=== PATIENT | female | born 1945 | race Caucasian/White ===

== ENCOUNTER 2017-06-26 15:29 | Observation (INO) | payer MEDICARE ==
[2017-06-26] MEDS ORDERED: Cyclobenzaprine 10 MG TAB PO PRN (16:35)
[2017-06-26] MEDS ORDERED: Ondansetron ODT 4 MG TAB PO PRN (17:02)
[2017-06-26] MEDS ORDERED: HYDROcodone/Acetaminophen 10/325 mg Tablet PO PRN (17:02)
[2017-06-26] MEDS ORDERED: HYDROcodone/Acetaminophen 5/325 mg Tablet PO PRN (17:02)
[2017-06-26] MEDS ORDERED: Acetaminophen 325 MG TAB PO PRN (17:02)
[2017-06-26] MEDS ORDERED: Enoxaparin Sodium 40 MG/0.4 ML SYRINGE SC SCH (17:02)
--- NOTE | 2017-06-26 17:17 | HP ---
DATE OF OBSERVATION: 06/26/2017 CHIEF COMPLAINT: Urinary tract infection. HISTORY OF PRESENT ILLNESS: Ms. Cueto is a 72-year-old white female, looks younger than her stated age. She was transferred from [facility] for admission for UTI. She had 1 day of subjective fe norberto, urinary urgency and frequency, but no dysuria that she never has. She went to the emergency de partment at [facility] where she was found to have white count of 21.9, lactic acid was a little elevated at 2.6, the rest of her labs remained unremarkable and for some reason she was transferred here for further workup and evaluation. She has been admitted several times in the past for urinary tract infection. She does not have any known anatomic abnormalities, sees an urologist in [place], she thinks Dr. Jack. No chest pain or shortness of breath, no nausea or vomiting, no diaphoresis, no chills or rigors. PAST MEDICAL HISTORY: 1. Hypertension. 2. Past pneumonia. 3. Coronary artery disease, status post PCI and balloons in 1996. 4. History of recurrent urinary tract infections and pyelonephritis. 5. Restless leg syndrome. 6. GERD. PAST SURGICAL HISTORY: Include, 1. PCI with 2 balloon treatment in 1996. 2. Back surgery in [place] about 10 years ago. HOME MEDICATIONS: 1. Norvasc 5 mg daily. 2. Aspirin 81 mg daily. 3. Coreg 12.5 mg p.o. b.i.d. 4. Myrbetriq 50 mg p.o. q.a.m. 5. Omeprazole 20 mg p.o. q.a.m. 6. Oxybutynin 5 mg p.o. t.i.d. 7. Requip 1 mg p.o. q.a.m. and 3 mg p.o. at bedtime. 8. Gabapentin 300 mg p.o. q.a.m. and 600 mg p.o. q.3 p.m. and 800 mg p.o. at bedtime. 9. Lasix 20 mg p.o. daily p.r.n. swelling. 10. Advair Diskus 250/50 one puff q.4 hours p.r.n. 11. Estradiol 1 mg p.o. q.a.m. 12. Flexeril 10 mg p.o. t.i.d. p.r.n. muscle spasm. ALLERGIES: RASTA INHIBITOR causes angioedema, specifically RAMIPRIL and IBUPROFEN causes GI irritatio n. FAMILY HISTORY: Negative for clotting or bleeding disorder, no immune dysfunction, no premature cor onary artery disease. SOCIAL HISTORY: She is . She does not drink, has never done drugs and does not smoke. REVIEW OF SYSTEMS: A 10-point review of systems was performed and negative for all systems except a s stated per HPI. PHYSICAL EXAMINATION: VITAL SIGNS: Temperature 98.1, pulse 93, blood pressure 131/68, respiratory 18, satting 95% on room air. GENERAL: She is awake. She is alert. She is oriented x3. She appears to be in zero distress. HEENT: Normocephalic, atraumatic. Pupils equal, round, reactive to light bilaterally. Mucous memb ranes are moist. She had no visible lesions. No thrush. NECK: Supple. She has no lymphadenopathy, no JVD. She has normal carotids without bruits and norm al upstroke. LUNGS: Clear to auscultation bilaterally. She has no wheezes, no rales, no rhonchi, and no prolong ed expiratory phase and good air movement and symmetric bilateral chest excursion. CARDIOVASCULAR: She has normal cardiac. She is regular. She has normal S1 and S2, no S3 or S4. N o murmurs. ABDOMEN: Soft, nontender, nondistended. She has no suprapubic tenderness. There is no rebound, ri gidity or guarding. She has normoactive bowel sounds present all 4 quadrants. EXTREMITIES: No cyanosis, no clubbing. She has trace pedal edema. She has 2+ peripheral dorsalis pedis and posterior tibial pulses. NEUROLOGIC: Cranial nerves II-XII are grossly intact. She has normal strength, normal speech patte rn, no focal neurologic deficits. MUSCULOSKELETAL: Normal to inspection. She has no inflamed joints, no palpable joint effusions and normal range of motion. SKIN: Warm and well perfused. She has no rashes and no discoloration or lesions. LABORATORY DATA: CMP is completely normal. Creatinine 0.85, potassium 3.8. Normal liver functions . Her white count was 21.9, she did have a slight granulocytosis but no documented bands. Hemoglob in 10.5, hematocrit 34.6, platelets 383,000. Lactic acid slightly elevated at 2.6. Her urinalysis shows 21-50 white blood cells with 7-10 squamo us epithelial cells. She has 4+ bacteria and positive nitrite. ASSESSMENT AND PLAN: 1. Urinary tract infection. She reportedly had a fever at home of 101.2 earlier, with that conside red and apparently initially tachycardic, she does meet criteria for sepsis, lactic acid 2.6 and she meets criteria for severe sepsis. We will place in observation. We will start her on IV antibioti cs, she got Rocephin at the outside hospital. Start her on IV fluids. Recheck labs in the morning. She actually looks quite good given her inclusive severe sepsis criteria. I suspect she may be ab le to go home tomorrow. We will reevaluate then. 2. Hypertension. Continue home medications. 3. Coronary artery disease. Continue home medications. 4. History of restless legs syndrome. Continue her Requip. 6. Gastroesophageal reflux disease. Continue omeprazole. I will recollect her urinalysis, given that she has 7-10 squamous epithelial cells, increase the ris k of contamination. Review of her prior urinalysis and cultures did reveal multiple episodes of contamination. We will evaluate once we have better data. Place the patient in observation overnight.
[2017-06-26 17:20] VITALS: BMI 30.5
[2017-06-26] MEDS: Sodium Chloride 0.9% 1,000 ML IV SCH (18:00)
[2017-06-26] MEDS: Mometasone/Formoterol 120 PUFF INHALER INH SCH (18:35)
[2017-06-26] MEDS: Carvedilol 6.25 MG TAB PO SCH (20:54)
[2017-06-26] MEDS: Oxybutynin 5 MG TAB PO SCH (20:57)
[2017-06-26] MEDS ORDERED: Gabapentin 300 MG CAP PO SCH (21:00)
[2017-06-26] MEDS ORDERED: Amlodipine 5 MG TAB PO SCH (21:00)
[2017-06-26] MEDS ORDERED: Non-Formulary Item 1 EACH (Oxybutynin Chloride [Oxybutynin Chloride] 5 MG) PO SCH (21:00)
[2017-06-26] MEDS ORDERED: rOPINIRole HCl 1 MG TAB PO SCH (21:00)
[2017-06-26 23:24] LABS: Bilirubin Negative (Negative); Blood, Urine Negative (Negative); Glucose, Urine (Dipstick) Negative (Negative); Ketone, Urine Negative (Negative); Nitrite Negative (Negative); Protein, Urine (Dipstick) Negative (Neg-Trace); Urobilinogen 0.2 mg/dL (0.2-1.0)
[2017-06-26 23:26] LABS: Bacteria/HPF None Seen HPF (None Seen); Hyaline Casts/LPF 0-3 HYALINE CAST LPF (0-3 Hyaline); RBC/HPF 0-3 HPF (0-3); Squamous Epithelial None Seen HPF (0-3)
[2017-06-26 23:27] LABS: Yeast-All Forms None Seen HPF (None Seen)
[2017-06-27 02:59] VITALS: TEMP 97.8
[2017-06-27] MEDS: Sodium Chloride 0.9% 1,000 ML IV SCH (03:00)
[2017-06-27 05:39] LABS: #Lymphocytes 1.8 thou/uL (1.20-3.40); #Monocytes 0.5 thou/uL (0.11-0.59); #Neutrophils 9.4 thou/uL (1.40-6.50); %Basophils 0.1 % (0.0-1.0); %Eosinophils 0.3 % (0.0-10.0); %Lymphocytes 15.5 % (21.0-51.0); %Monocytes 4.2 % (0.0-10.0); Hematocrit 30.1 % (36.0-47.0); Mean Platelet Volume 6.9 fL (7.4-10.4); Red Blood Cell (RBC) Count 3.65 mill/uL (4.20-5.40); White Blood Cell (WBC) Count 11.8 thou/uL (4.8-10.8)
[2017-06-27 06:01] LABS: Anion Gap 11 mmol/L (10-20); BUN (Urea Nitrogen) 16 mg/dL (9.8-20.1); Calc. Creatinine Clearance 77 mL/min (70-130); Calcium 8.8 mg/dL (7.8-10.44); Carbon Dioxide 26 mmol/L (23-31); Chloride 105 mmol/L (98-107); Estimated GFR-MDRD 72
[2017-06-27] MEDS: Mometasone/Formoterol 120 PUFF INHALER INH SCH (07:18)
[2017-06-27] MEDS ORDERED: rOPINIRole HCl 1 MG TAB PO SCH (09:00)
[2017-06-27] MEDS ORDERED: Estradiol 1 MG TAB PO SCH (09:00)
[2017-06-27] MEDS ORDERED: Gabapentin 300 MG CAP PO SCH ×2 (09:00→15:00)
[2017-06-27] MEDS: Carvedilol 6.25 MG TAB PO SCH (09:16)
[2017-06-27] MEDS: Oxybutynin 5 MG TAB PO SCH (09:17)
[2017-06-27 12:18] VITALS: BP 171/70
--- NOTE | 2017-06-27 16:48 | DIS ---
DATE OF ADMISSION: 06/26/2017 DATE OF DISCHARGE: 06/27/2017 DISCHARGE DIAGNOSES: 1. Urinary tract infection. 2. Severe sepsis by criteria. 3. Essential hypertension. 4. Recurrent urinary tract infections. 5. Gastroesophageal reflux disease. 6. Restless leg syndrome. 7. Chronic low back pain. 8. History of coronary artery disease. CONSULTATIONS: None. PROCEDURES: None. HISTORY AND PHYSICAL: Ms. Tawanda Cueto is a pleasant 72-year-old female transferred from [facility] Emergency Department after presenting there with fever and urinary urgency. She has a history of recurrent UTIs. Her workup revealed white count of 21,900, she has lactic acid slightly elevated at 2.6, she was slightly tachycardic and reported fever. She was subsequently transferred to our hospital, because of severe sepsis and were evaluated for admission. On arrival, the patient was hemodynamically stable, vital signs were normal. She was afebrile. We were called for admission. HOSPITAL COURSE: The patient was seen and examined in the emergency department. She was literally the most healthy looking severe sepsis patient I have ever seen. She was placed in observation overnight on IV fluids, she was started on IV antibiotics. Obviously, she got one dose of IV antibiotics in the emergency department, so those were not continued until she has reevaluated in the morning. Overnight, she had no fever. Her white blood cell count dropped from 21.9 down to 11.8. She had a normal heart rate and normal blood pressure and was feeling back to her baseline. She was stable for discharge with outpatient followup. PHYSICAL EXAMINAITON: The patient was seen and examined on the day of discharge. Discharge plan and disposition were discussed with the patient. The patient was placed at the bedside. was in the room. DISCHARGE MEDICATIONS: 1. Levofloxacin 250 mg daily, prescription for 7 tablets with no refills sent. 2. Tylenol #3. Continue per home dosing. 3. Norvasc 5 mg daily. 4. Aspirin 81 mg daily. 5. Tessalon Perles 100 mg p.o. t.i.d. p.r.n. 6. Carvedilol 3.125 mg p.o. b.i.d. 7. Flexeril 10 mg p.o. t.i.d. p.r.n. muscle spasm. 8. Estradiol 1 mg p.o. q.a.m. 9. Advair Diskus 250/50 one puff inhaled q.4 hours as needed for wheezing. 10. Lasix 20 mg daily as needed for her feet swelling. 11. Neurontin 300 mg p.o. q.a.m. and 600 mg p.o. q.p.m. and 1800 mg p.o. at bedtime per her home dose. 12. Garlic 1000 mg 2 tablets daily. 13. Myrbetriq 50 mg p.o. q.a.m. 14. Multivitamin daily. 15. Omeprazole 20 mg p.o. q.a.m. 16. Requip 1 mg p.o. q.3 hours p.m. and 3 mg p.o. at bedtime. DISCHARGE DIET: Heart healthy. DISCHARGE ACTIVITY: As tolerated. FOLLOWUP APPOINTMENTS: Primary care physician Dr. Jones within a week. DISCHARGE INSTRUCTIONS: To return to the Emergency Department for persistent fever greater than 101.0 or return of symptoms. MTDD
== END 2017-06-27 12:24 | disposition home or self-care (01) ==
LOC: ERS 15:29 → 2SW 15:59
PROVIDERS: ADMIT Internal Medicine Infectious Disease; ATTEND Internal Medicine Infectious Disease
DX: N39.0 Urinary tract infection, site not specified (principal); A41.9 Sepsis, unspecified organism; R65.20 Severe sepsis without septic shock; I10 Essential (primary) hypertension; K21.9 Gastro-esophageal reflux disease without esophagitis; G25.81 Restless legs syndrome; G89.29 Other chronic pain; I25.10 Atherosclerotic heart disease of native coronary artery without angina pectoris; Z88.6 Allergy status to analgesic agent; Z88.8 Allergy status to other drugs, medicaments and biological substances; Z79.82 Long term (current) use of aspirin; Z79.899 Other long term (current) drug therapy; Z87.440 Personal history of urinary (tract) infections
CPT/HCPCS: 80048; 81001; 85025; 87086; 94640 ×2; 96360; 96361 ×2; 96372; 99285; G0378; 36415; J1650

== ENCOUNTER 2017-08-23 07:17 | Observation (INO) | payer MEDICARE ==
[2017-08-23 08:00] LABS: #Eosinphils 0.1 thou/uL (0.0-0.7); #Lymphocytes 1.5 thou/uL (1.20-3.40); #Monocytes 0.6 thou/uL (0.11-0.59); #Neutrophils 13.3 thou/uL (1.40-6.50); %Basophils 0.2 % (0.0-1.0); %Eosinophils 0.8 % (0.0-10.0); %Lymphocytes 9.7 % (21.0-51.0); %Monocytes 3.7 % (0.0-10.0); %Neutrophils 85.6 % (42.0-75.0); Mean Corpuscular Hemoglobin 25.7 pg (27.0-31.0); Mean Corpuscular Volume 80.4 fl (81.0-99.0); Mean Platelet Volume 6.5 fL (7.4-10.4); Platelet Count 408 thou/uL (130-400); RBC Distribution Width 15.1 % (11.5-14.5); Red Blood Cell (RBC) Count 4.26 mill/uL (4.20-5.40); White Blood Cell (WBC) Count 15.6 thou/uL (4.8-10.8)
[2017-08-23 08:08] LABS: Bilirubin Negative (Negative); Blood, Urine Negative (Negative); Clarity CLEAR (Clear); Glucose, Urine (Dipstick) Negative (Negative); Leukocyte Negative (Negative); Nitrite Negative (Negative); Protein, Urine (Dipstick) Negative (Neg-Trace); Specific Gravity, Urine 1.016 (1.002-1.036); Urobilinogen 0.2 mg/dL (0.2-1.0); pH, Urine 6.5 (5.0-9.0)
--- NOTE | 2017-08-23 08:09 | RAD ---
TWO VIEW CHEST: INDICATIONS: Cough. Chills. COMPARISON: 06/26/2017 FINDINGS: There is no lobar consolidation, effusion, or discrete pneumothorax. The cardiac silhouette is withi n normal limits in size. There is osseous degenerative change. IMPRESSION: No focal consolidation. POS: [facility]
[2017-08-23 08:17] LABS: ALT (SGPT) 13 U/L (8-55); AST (SGOT) 18 U/L (5-34); Albumin 3.6 g/dL (3.4-4.8); Alkaline Phosphatase 94 U/L (40-150); Anion Gap 13 mmol/L (10-20); BUN (Urea Nitrogen) 17 mg/dL (9.8-20.1); Bilirubin, Total 0.3 mg/dL (0.2-1.2); Calc. Creatinine Clearance 0 mL/min (70-130); Calcium 9.3 mg/dL (7.8-10.44); Carbon Dioxide 25 mmol/L (23-31); Chloride 100 mmol/L (98-107); Estimated GFR-MDRD 55; Globulin 3.2 g/dL (2.4-3.5); Glucose 112 mg/dL (83-110); Potassium 4.1 mmol/L (3.5-5.1); Protein, Total 6.8 g/dL (6.0-8.3); Sodium 134 mmol/L (136-145)
[2017-08-23] MEDS ORDERED: Piperacillin/Tazobactam 3.375 GM in Sodium Chloride 0.9% 100 ML IVPB SCH (12:00)
[2017-08-23 12:57] LABS: Lactic Acid 2.9 mmol/L (0.5-2.2)
[2017-08-23] MEDS ORDERED: Ondansetron ODT 4 MG TAB SL PRN (14:00)
[2017-08-23] MEDS ORDERED: Acetaminophen 325 MG TAB PO PRN ×2 (14:00→16:10)
[2017-08-23] MEDS ORDERED: Sodium Chloride 0.9% 1,000 ML IV SCH (14:00)
[2017-08-23] MEDS ORDERED: Ondansetron HCl/PF 4 MG/2 ML Vial IVP PRN (14:00)
[2017-08-23 14:14] VITALS: BMI 29.9
[2017-08-23] MEDS ORDERED: HYDROcodone/Acetaminophen 10/325 mg Tablet PO PRN (16:10)
[2017-08-23] MEDS ORDERED: Cyclobenzaprine 10 MG TAB PO PRN (16:10)
[2017-08-23] MEDS ORDERED: guaiFENesin/Codeine Phosphate 200 mg/20 mg 10 ml UD Cup PO PRN (16:10)
[2017-08-23] MEDS ORDERED: Benzonatate 100 MG CAP PO PRN (16:10)
[2017-08-23] MEDS ORDERED: HYDROcodone/Acetaminophen 5/325 mg Tablet PO PRN (16:10)
[2017-08-23] MEDS ORDERED: Ondansetron ODT 4 MG TAB PO PRN (16:10)
[2017-08-23] MEDS ORDERED: Enoxaparin Sodium 40 MG/0.4 ML SYRINGE SC SCH (16:30)
[2017-08-23] MEDS: Sodium Chloride 0.9% 1,000 ML IV SCH (16:57)
[2017-08-23] MEDS ORDERED: Gabapentin 300 MG CAP PO SCH ×2 (17:00→21:00)
[2017-08-23] MEDS ORDERED: rOPINIRole HCl 1 MG TAB PO SCH ×2 (17:00→21:00)
[2017-08-23] MEDS: Mometasone/Formoterol 120 PUFF INHALER INH SCH (18:32)
[2017-08-23] MEDS: Carvedilol 6.25 MG TAB PO SCH (20:53)
[2017-08-23] MEDS ORDERED: Amlodipine 5 MG TAB PO SCH (21:00)
[2017-08-24] MEDS: Sodium Chloride 0.9% 1,000 ML IV SCH (01:30)
[2017-08-24 05:14] LABS: #Eosinphils 0.4 thou/uL (0.0-0.7); #Lymphocytes 1.9 thou/uL (1.20-3.40); #Monocytes 0.4 thou/uL (0.11-0.59); #Neutrophils 4.4 thou/uL (1.40-6.50); %Basophils 0.4 % (0.0-1.0); %Eosinophils 5.3 % (0.0-10.0); %Lymphocytes 26.6 % (21.0-51.0); %Monocytes 6.2 % (0.0-10.0); %Neutrophils 61.6 % (42.0-75.0); Hemoglobin 9.6 g/dL (12.0-16.0); Mean Corpuscular HGB CONC 31.6 g/dL (32.0-36.0); Mean Corpuscular Hemoglobin 25.9 pg (27.0-31.0); Mean Platelet Volume 7.1 fL (7.4-10.4); Platelet Count 361 thou/uL (130-400); RBC Distribution Width 15.2 % (11.5-14.5); Red Blood Cell (RBC) Count 3.72 mill/uL (4.20-5.40); White Blood Cell (WBC) Count 7.2 thou/uL (4.8-10.8)
[2017-08-24 05:25] LABS: Anion Gap 14 mmol/L (10-20); BUN (Urea Nitrogen) 14 mg/dL (9.8-20.1); Calc. Creatinine Clearance 87 mL/min (70-130); Calcium 8.7 mg/dL (7.8-10.44); Carbon Dioxide 26 mmol/L (23-31); Chloride 104 mmol/L (98-107); Estimated GFR-MDRD 82; Glucose 114 mg/dL (83-110); Potassium 3.7 mmol/L (3.5-5.1); Sodium 140 mmol/L (136-145)
[2017-08-24 08:51] VITALS: TEMP 97.6
[2017-08-24] MEDS ORDERED: Gabapentin 300 MG CAP PO SCH ×2 (09:00→15:00)
[2017-08-24] MEDS ORDERED: Estradiol 1 MG TAB PO SCH (09:00)
[2017-08-24] MEDS ORDERED: rOPINIRole HCl 1 MG TAB PO SCH (09:00)
[2017-08-24] MEDS: Carvedilol 6.25 MG TAB PO SCH (09:27)
[2017-08-24 09:37] VITALS: BP 121/56
[2017-08-24] MEDS: Mometasone/Formoterol 120 PUFF INHALER INH SCH (10:18)
--- NOTE | 2017-08-24 14:02 | DIS ---
DATE OF ADMISSION: 08/23/2017 DATE OF DISCHARGE: 08/24/2017 PRIMARY CARE PHYSICIAN: Silvestre Jones M.D. PRIMARY INFECTIOUS DISEASE: Robert Fortune M.D. DISCHARGE DIAGNOSES: 1. Dehydration. 2. Sepsis ruled out. 3. Hypertension. 4. History of coronary artery disease. 5. History of recurrent urinary tract infections. 6. History of chronic lower extremity cellulitis. CONSULTATIONS: None. PROCEDURES: None. HOSPITAL COURSE: Ms. Cueto is a 72-year-old female known to me from admission back in June. At that time, she was having urinary symptoms, presented to an outside ER and met sepsis criteria and w as transferred here. On arrival here, she actually looked good. She was started on intravenous antibiotics and was stable for discharge the following day. She presented to our emergency department on 08/23/2017 with complaints of subjective fevers, she den ied any hematuria, dysuria, no documented fevers, but did have some tachycardia. She related a long history of chronic cough and was concerned that her pneumonia was coming back. She was worked up in the ER, she was found to meet sepsis criteria again. She was given IV fluids, a ntibiotics, in the form of Zosyn x1 dose. We were called for admission. HOSPITAL COURSE: The patient examined by me in emergency department. She did meet sepsis criteria, but appeared to be clinically dehydrated. She was continued on the IV fluids by the ER and no furthe r antibiotics were given. She was placed in observation watched overnight. Lactic acid initially 2.6; 2.9 on repeat. Overnight she remained afebrile. Her heart rate with IV fluids, improved. She was given 106 mL per hour. By the morning of 08/24/2017, she was urinating almost clear. Her lactic acid normalized and white b lood cell count had gone from 15,000 to normal. Her chemistries remained normal. She had no other f lena and was stable for discharge with outpatient followup. From considerable time talking with the patient and her , the patient for the last several visits had presented to the emergency depa rtment for evaluation of not feeling good. Every time she appears to be hemoconcentrated, gets fluid s. The following morning is having normal indices. We talked about strategies to address before pre senting urgently to the emergency department including continued fever, localizing symptoms, and then sure that she is taking plenty of fluids. The patient was otherwise stable for discharge with outpatient followup. PHYSICAL EXAMINATION: The patient was seen and examined on the day of discharge. DISCHARGE PLAN AND DISPOSITION: Discussed with the patient and her face to face at the [facility]. DISCHARGE MEDICATIONS: Resume all of her home medications. No new medications were added. FOLLOWUP APPOINTMENTS: 1. Primary care physician, Dr. Jones in a week. 2. Dr. Fortune as scheduled. DISCHARGE DIET: As tolerated. DISCHARGE CONDITION: Stable. DISPOSITION: Being discharged home via private vehicle with her . DISCHARGE ACTIVITY: Per cardiopulmonary limits.
--- NOTE | 2017-08-24 14:47 | HP ---
DATE OF ADMISSION: 08/23/2017 TIME OF SERVICE: 1030 CHIEF COMPLAINT: "I do not feel good." HISTORY OF PRESENT ILLNESS: Ms. Cueto is a pleasant 72-year-old female known to me from previous ho spitalization about 6 weeks ago. At that time, she presented with urinary symptoms, and was found to have a UTI and met sepsis criteria and was admitted overnight for IV fluids and parenteral antibioti cs. She was discharged the next morning on Levaquin. The patient has done well since then, she has had a visit with Dr. Fortune and was placed on Penicillin VK. long-term for prophylaxis of recurrent lower extremity cellulitis. She presents to the emergency department today with complaints of a several month history of chronic cough, nonproductive at this point. She had a recent pneumonia and feels like it has never really go ne away. She has some low grade fevers at home that she has not taken. Had some chills that she describes as quick episodes of just feeling cold. She had no teeth-chattering rigors, no drenching sweats. In the Emergency Department, she was worked up. Eventually, she went to the [facility] erg[facility] Department yesterday for the same. She was discharged from that emergency department without any further workup. In the emergency department, white blood cell count was elevated at 15.6, her CMP was normal, she was tachycardic with a heart rate of 104, rectal temperature is 99.4 and she was satting 96% on room air and lactic acid was elevated at 2.6. She subsequently called for us to admit for sepsis. On my evaluation, she had no other localizing symptoms, denies any hematuria, dysuria or increased fr equency. No nausea, vomiting, diarrhea or abdominal pain. Some cough, but no sputum production. No hemoptysis. No chest pain. She has had no shaking chills or rigors. PAST MEDICAL HISTORY: 1. Hypertension. 2. Pneumonia, several months ago. 3. Coronary artery disease. 4. History of pyelonephritis. PAST SURGICAL HISTORY: Includes percutaneous transluminal coronary angioplasty in the past. HOME MEDICATIONS: 1. Estradiol 2 mg daily. 2. Aspirin 81 mg daily. 3. Ropinirole 3 mg p.o. at bedtime, 1mg p.o. q.a.m. 4. Myrbetriq 50 mg p.o. daily. 5. Omeprazole 20 mg daily. 6. Amlodipine 5 mg p.o. q.p.m. 7. Coreg 12.5 mg p.o. b.i.d. 8. Tylenol #3 as needed. 9. Lasix 20 mg p.o. q.a.m. p.r.n. 7. Flexeril 10 mg p.o. t.i.d. p.r.n. 8. Gabapentin 300 mg p.o. q.a.m., 600 mg p.o. q.p.m. and 1800 mg p.o. at bedtime. 9. Advair 250/50 one puff q.4 hours as needed. 10. Tessalon Perles 100 mg p.o. t.i.d. p.r.n. cough. 11. Robitussin-AC 15 mL p.o. q.4 hours p.r.n. cough. 12. Penicillin VK 250 p.o. b.i.d. 13. Trimethoprim 100 mg p.o. at bedtime per urologist. ALLERGIES: RASTA INHIBITORS, IBUPROFEN and RAMIPRIL specifically. FAMILY HISTORY: Negative for clotting or bleeding disorder, no immune dysfunction. SOCIAL HISTORY: Negative habits x3. She is . Her is not currently here. REVIEW OF SYSTEMS: A 10-point review of systems was performed, negative for all other systems except as stated as per HPI. PHYSICAL EXAMINATION: VITAL SIGNS: Temperature current 99.4, pulse 104, blood pressure 139/72, respiratory rate 20, O2 sat 96% on room air. GENERAL: She is awake. She is alert. She is oriented x3. She is a well-developed, well-nourished, white female who appears younger than her stated age of 72. HEENT: Head is normocephalic and atraumatic. Pupils are equal, round and reactive to light bilatera lly. Mucous membranes are moist. There are no visible lesions. No thrush. She does have posterior chronic nasal drip with cobblestone appearance of the posterior oropharynx. There is no purulence. NECK: Otherwise supple. There is no lymphadenopathy, no JVD, no thyromegaly with normal carotid ups trokes. LUNGS: Clear. She has no wheezes, no rales, no rhonchi. She has good air movement. Symmetrical ch est excursion. No prolonged expiratory phase. CARDIOVASCULAR: She has normal S1, S2. No S3 or S4. She has no audible murmurs. ABDOMEN: Soft, it is nontender, nondistended. She has normoactive bowel sounds present in all [address] leo [address]ants. There are no rebound, rigidity or guarding. EXTREMITIES: No cyanosis, no clubbing with trace pedal edema. She has 2+ peripheral pulses. SKIN: Otherwise warm, moist and well perfused. She has no rash, no lesions. NEUROLOGIC: Shows cranial nerves II through XII grossly intact. She has no focal neurologic deficit s, normal speech pattern, 5/5 strength in all 4 extremities. MUSCULOSKELETAL: Exam is normal to inspection. She has no joint inflammation, no palpable effusions . LABORATORY DATA AND IMAGING: Sodium 134, potassium 4.1, chloride 100, bicarbonate 25, BUN 17, creati nine 1.00, calcium 9.3. Glucose 112. Liver functions were completely within normal limits. CBC showed a white count of 15.6 with 86% granulocytes, but no bands. Hemoglobin 11.0, hematocrit of 34.2, platelet count of 408,000. Chest x-ray showed no acute cardiopulmonary disease and resolution of prior pneumonia. ASSESSMENT AND PLAN: 1. Chronic cough: I think this is actually due to a chronic postnasal drip from a cold or allergies . We will hold antibiotics at present. We will have her set up when she sleeps tonight, we will use Flonase and Zyrtec if she cannot get otherwise really. 2. Sepsis: The patient does meet sepsis criteria, though I do not think she has a bacterial infecti on at this point. We will hold antibiotics after the initial dose given in the ER. Repeat labs in t he morning. She did get 2 liters bolus in the emergency department. We will continue 100 mL an hour . 3. Suspected dehydration, normal hemoglobins were 9.5. Hemoglobin today is 11.0, I think due to hem oconcentration, we will give her IV fluids and repeat in the morning. 4. History of hypertension, we will continue home medications. 5. History of peripheral neuropathy, on gabapentin, we will continue. 6. History of recurrent pneumonia, I think not active anymore. 7. History of coronary artery disease, without symptoms. 8. History of gastroesophageal reflux disease on omeprazole. We will continue. 9. History of restless legs on ropinirole, Myrbetriq. We will continue.
== END 2017-08-24 10:54 | disposition home or self-care (01) ==
LOC: ERS 07:17 → 2SW 13:32
PROVIDERS: ADMIT Internal Medicine Infectious Disease; ATTEND Internal Medicine Infectious Disease
DX: E86.0 Dehydration (principal); I10 Essential (primary) hypertension; I25.10 Atherosclerotic heart disease of native coronary artery without angina pectoris; K21.9 Gastro-esophageal reflux disease without esophagitis; G62.9 Polyneuropathy, unspecified; G25.81 Restless legs syndrome; Z87.440 Personal history of urinary (tract) infections; Z87.2 Personal history of diseases of the skin and subcutaneous tissue; Z79.82 Long term (current) use of aspirin; Z79.818 Long term (current) use of other agents affecting estrogen receptors and estrogen levels; Z79.899 Other long term (current) drug therapy; Z88.8 Allergy status to other drugs, medicaments and biological substances; Z98.61 Coronary angioplasty status; Z90.710 Acquired absence of both cervix and uterus; Z98.890 Other specified postprocedural states
CPT/HCPCS: 71046; 80048; 80053; 81003; 83605 ×2; 85025 ×2; 87040; 87086; 94640 ×2; 94664; 96361 ×3; 96365; 96367; 96372; 99284; G0378; 36415; J1650; J2543; J3370; J7050

== ENCOUNTER 2017-10-23 07:19 | Outpatient (CLI) | payer MEDICARE ==
--- NOTE | 2017-10-23 11:18 | CT ---
CT CHEST WITH CONTRAST CT ABDOMEN WITH CONTRAST CT PELVIS WITH CONTRAST: Date: 10/23/17 HISTORY: Pain. Follow-up mass or cyst in pelvis and infection in lungs with pneumonia. COMPARISON: CT chest, abdomen, and pelvis dated 05/02/17. FINDINGS: Within the left lobe of the thyroid, caudal pole, is a mass with coarse calcifications. There are sma ll pretracheal lymph nodes and paratracheal lymph nodes, similar. No pericardial effusion. Moderate size sliding hiatal hernia. Within the right upper lobe are predominantly central ground-glass opacities. These are faint. On the previous exam, there were some central left upper lobe ground-glass opacities, which are no longer s een. Lung bases are clear. Abutting the sigmoid colon, there is a small, peripherally enhancing fluid collection, measuring up t o 1.1 cm. Relative to the prior examination, this is similar to slightly decreasing in size. There is mild inflammatory response around this area. No dilated loops of large or small bowel. No hydronephr osis. Liver and gallbladder are unremarkable. Laminectomy changes of lumbar spine. Moderate facet arthrosis. IMPRESSION: 1. Interval improvement of the previously described left upper lobe pulmonary opacities, although th ere are new right upper lobe ground-glass pulmonary opacities. These opacities have appearance of fib rinous organizing pneumonia. 2. Interval resolution of lower lobe air space opacities. 3. Abutting the sigmoid colon, there appears to be a dilated, fluid-filled diverticulum with evidenc e of relatively recent inflammation. 4. Similar appearance with mild interval size increased at the right inguinal lymph nodes. Continued follow-up recommended. 5. Partially calcified nodule lower left pole thyroid. Nonemergent ultrasound recommended. POS: [facility]
== END 2017-10-23 07:20 | disposition home or self-care (01) ==
LOC: SCSCT 07:19
PROVIDERS: ATTEND Internal Medicine Infectious Disease
DX: R19.00 Intra-abdominal and pelvic swelling, mass and lump, unspecified site (principal); R91.8 Other nonspecific abnormal finding of lung field; E04.1 Nontoxic single thyroid nodule
CPT/HCPCS: 71260; 74177

== ENCOUNTER 2018-06-25 12:55 | Outpatient (CLI) | payer MEDICARE ==
--- NOTE | 2018-07-01 16:38 | MMO ---
BILATERAL SCREENING MAMMOGRAM: Date: 06/25/18 INDICATION: Annual exam. COMPARISON: Prior exam dated 01/20/12. FINDINGS: Interpretation of this exam was assisted with computer-aided detection. There are scattered fibroglandular elements bilaterally. There are benign-appearing calcifications within the right and left breast. No suspicious mass, cluster of microcalcifications, or area of architectural distortion is evident. IMPRESSION: BIRADS 2: Benign Finding(s) Recommend routine annual mammographic screening. POS: [facility]
== END 2018-06-25 12:56 | disposition home or self-care (01) ==
LOC: BICMAMMO 12:55 → SCSMAMMO 12:56
PROVIDERS: ATTEND Internal Medicine
DX: Z12.31 Encounter for screening mammogram for malignant neoplasm of breast (principal)
CPT/HCPCS: 77067

== ENCOUNTER 2018-08-03 11:44 | Outpatient (CLI) | payer MEDICARE ==
--- NOTE | 2018-08-03 12:40 | RAD ---
RIGHT HIP TWO VIEWS: History: Right hip pain and arthritis. FINDINGS: Minimal degenerative changes are present. No fracture, dislocation, or bony destruction is identified . POS: [facility]
--- NOTE | 2018-08-03 13:31 | RAD ---
LEFT HIP 2 VIEWS: Date: 08/03/18 HISTORY: Left hip pain and arthritis. FINDINGS/IMPRESSION: Minimal degenerative changes are present. No fracture, dislocation, or bony destruction is identified . POS: [facility]
--- NOTE | 2018-08-03 13:53 | RAD ---
CERVICAL SPINE FOUR VIEWS MINIMUM: INDICATIONS: Spondylosis of the cervical region. FINDINGS: There is mild anterolisthesis of C3 on C4. There is advanced disk degenerative disease of C4-C5, C5- C6, and C6-C7. There is some reduction of the anterolisthesis with extension and slight accentuation of the anterolisthesis with flexion. No additional abnormal translational motion is evident. There are vascular calcifications involving the left carotid bulb. The lung apices are clear. The latera l masses are symmetric. IMPRESSION: 1. Advanced disk degenerative disease at C4-C5 through C6-C7. 2. Mild anterior translation of C3 on C4, accentuated with flexion and slightly reduced with extensi on. POS: [facility]
== END 2018-08-03 11:45 | disposition home or self-care (01) ==
LOC: RAD 11:44
PROVIDERS: ATTEND Specialist
DX: M47.812 Spondylosis without myelopathy or radiculopathy, cervical region (principal); M16.0 Bilateral primary osteoarthritis of hip; M50.321 Other cervical disc degeneration at C4-C5 level; M50.323 Other cervical disc degeneration at C6-C7 level
CPT/HCPCS: 72050

== ENCOUNTER 2018-12-07 03:12 | Inpatient (IN) | payer MEDICARE ==
[2018-12-07 04:17] LABS: ALT (SGPT) 22 U/L (8-55); AST (SGOT) 18 U/L (5-34); Albumin 3.5 g/dL (3.4-4.8); Alkaline Phosphatase 104 U/L (40-150); Anion Gap 16 mmol/L (10-20); BUN (Urea Nitrogen) 16 mg/dL (9.8-20.1); Bilirubin, Total 0.3 mg/dL (0.2-1.2); Calc. Creatinine Clearance 0 mL/min (70-130); Calcium 8.6 mg/dL (7.8-10.44); Carbon Dioxide 21 mmol/L (23-31); Chloride 102 mmol/L (98-107); Estimated GFR-MDRD 65; Glucose 104 mg/dL (83-110); Lipase 9 U/L (8-78); Protein, Total 6.5 g/dL (6.0-8.3); Sodium 135 mmol/L (136-145)
[2018-12-07 04:36] LABS: #Eosinphils 0.1 thou/uL (0.0-0.7); #Lymphocytes 1.5 thou/uL (1.20-3.40); #Monocytes 0.5 thou/uL (0.11-0.59); #Neutrophils 6.5 thou/uL (1.40-6.50); %Basophils 0.2 % (0.0-1.0); %Lymphocytes 17.7 % (21.0-51.0); %Monocytes 6.3 % (0.0-10.0); %Neutrophils 74.8 % (42.0-75.0); Hemoglobin 7.9 g/dL (12.0-16.0); Hypochromia MODERATE=16-30 cells (100X) (0-5/hpf); MDiff Complete? YES; Mean Corpuscular HGB CONC 29.9 g/dL (32.0-36.0); Mean Corpuscular Hemoglobin 20.3 pg (27.0-31.0); Mean Corpuscular Volume 67.9 fL (78.0-98.0); Mean Platelet Volume 7.7 fL (7.4-10.4); Microcytosis SLIGHT = 6-15 cells (100X) (0-5/hpf); Platelet Count 537 thou/uL (130-400); Platelet Morphology Comment Appears Increased; RBC Distribution Width 17.1 % (11.5-14.5); Red Blood Cell (RBC) Count 3.91 mill/uL (4.20-5.40); Reflex for Review?? YES; White Blood Cell (WBC) Count 8.6 thou/uL (4.8-10.8)
[2018-12-07] MEDS ORDERED: cefTRIAXone\\ROCEPHIN 1 GM VIAL ONE (05:07)
--- NOTE | 2018-12-07 05:53 | PDOC.FPRHP ---
- History of Present Illness Chief Complaint: SOB History of Present Illness: 73yo F with pmh of HTN presents for 3 weeks of increaseing SOB and cough. Pt denies fevers/chills, reports nausea, no vomiting. Otherwise pt states she is over all feeling well. ED Course: Pt requiring 3L of O2 in ED, azithromycin and rocephin administered. - Allergies/Adverse Reactions Allergies Allergy/AdvReac Type Severity Reaction Status Date / Time RASTA Inhibitors Allergy Swollen Verified 03/15/18 07:28 Lips ramipril Allergy Swollen Verified 03/15/18 07:28 Lips ibuprofen AdvReac Stomach Verified 03/15/18 07:28 Ache - Home Medications Medication Instructions Recorded Confirmed Type Aspirin Chewable [Aspirin Chewable 81 mg PO QAM 08/30/15 12/07/18 History Tablet] Gabapentin 300 mg PO QAM 08/30/15 12/07/18 History Omeprazole 20 mg PO QAM 08/30/15 12/07/18 History Carvedilol [Coreg] 12.5 mg PO BID 04/10/17 12/07/18 History Cyclobenzaprine [Flexeril] 10 mg PO TID PRN 04/10/17 12/07/18 History Furosemide 20 mg PO DAILY PRN 05/03/17 12/07/18 History Mirabegron [Myrbetriq] 50 mg PO QAM 05/03/17 12/07/18 History Cholecalciferol (Vitamin D3) 1,000 unit PO BID 03/15/18 12/07/18 History [Vitamin D] Trimethoprim 100 mg PO DAILY 03/15/18 12/07/18 History Estradiol [Estrace] 1 mg PO QAM tab 03/17/18 12/07/18 Rx rOPINIRole HCl [Requip] 2 mg PO 1500,2100 tab 03/17/18 12/07/18 Rx Acetaminophen W/ Codeine 1 tab PO TID PRN 12/07/18 12/07/18 History [Acetaminophen/Codeine #3] Albuterol Sulfate [Proventil Hfa] 2 puff INH Q6H PRN 12/07/18 12/07/18 History Amlodipine [Norvasc] 10 mg PO BID 12/07/18 12/07/18 History Gabapentin [Neurontin] 1,200 mg PO 1500,2000 12/07/18 12/07/18 History Ipratropium/Albuterol Sulfate 3 ml INH TID PRN 12/07/18 12/07/18 History [Iprat-Albut 0.5-3(2.5) mg/3 ml] Lutein 6 mg PO DAILY 12/07/18 12/07/18 History - History PMHx: HTN, COPD, CAD s/p Percutaneous angiography, GERD, restless leg, chronic microcytic anemia, recurrent UTIs, peripheral neuropathy, mixed incontinence PSHx: back surgery, hysterectomy, heart cath FHx: none Social: no smoking, drugs, alcohol - Review of Systems General: reports: fatigue. denies: fever/chills Eyes: denies: eye pain, vision changes ENT: denies: nasal congestion, rhinorrhea Respiratory: reports: cough, shortness of breath Cardiovascular: denies: chest pain, palpitation Gastrointestinal: reports: nausea. denies: vomiting Genitourinary: denies: incontinence, dysuria Skin: denies: lesions, jaundice Musculoskeletal: denies: tenderness, stiffness Neurological: denies: syncope, seizure Psychological: denies: anxiety, depression - Vital signs BP: 134/59, Pulse: 72, Resp: 25, Temp: 97.5, Pain: 0, O2 sat: 98 on 3L, Time: 07:40. - Physical Exam Constitutional: awake, alert and oriented, well developed HEENT: EOMI, grossly normal vision, grossly normal hearing Neck: supple, trachea midline Chest: no-tender to palpation Heart: RRR, normal S1/S2 Lungs: good air movement, other (inspiratory cracklesin L lung base) Abdomen: soft, non-tender Musculoskeletal: normal structure, normal tone Neurological: no focal deficit, normal sensation Skin: no rash/lesions, good turgor Heme/Lymphatic: no unusual bruising or bleeding, no purpura Psychiatric: normal mood and affect, good judgment and insight FMR H&P: Results - Labs Result Diagrams: 12/07/18 03:53 12/07/18 03:47 Lab results: WBC 8.6 thou/uL (4.8-10.8) 12/07/18 03:53 Hgb 7.9 g/dL (12.0-16.0) L 12/07/18 03:53 Hct 26.5 % (36.0-47.0) L 12/07/18 03:53 MCV 67.9 fL (78.0-98.0) L 12/07/18 03:53 Plt Count 537 thou/uL (130-400) H 12/07/18 03:53 Neutrophils % 74.8 % (42.0-75.0) 12/07/18 03:53 Sodium 135 mmol/L (136-145) L 12/07/18 03:47 Potassium 4.0 mmol/L (3.5-5.1) 12/07/18 03:47 Chloride 102 mmol/L (98-107) 12/07/18 03:47 Carbon Dioxide 21 mmol/L (23-31) L 12/07/18 03:47 BUN 16 mg/dL (9.8-20.1) 12/07/18 03:47 Creatinine 0.86 mg/dL (0.6-1.1) 12/07/18 03:47 Glucose 104 mg/dL (83-110) 12/07/18 03:47 Calcium 8.6 mg/dL (7.8-10.44) 12/07/18 03:47 Total Bilirubin 0.3 mg/dL (0.2-1.2) 12/07/18 03:47 AST 18 U/L (5-34) 12/07/18 03:47 ALT 22 U/L (8-55) 12/07/18 03:47 Alkaline Phosphatase 104 U/L (40-150) 12/07/18 03:47 B-Natriuretic Peptide 181.7 pg/mL (0-100) H 12/07/18 03:53 Serum Total Protein 6.5 g/dL (6.0-8.3) 12/07/18 03:47 Albumin 3.5 g/dL (3.4-4.8) 12/07/18 03:47 Lipase 9 U/L (8-78) 12/07/18 03:47 FMR H&P: A/P - Problem List (1) Pneumonia Current Visit: No Status: Acute Code(s): J18.9 - PNEUMONIA, UNSPECIFIED ORGANISM (2) Anemia Current Visit: Yes Status: Acute Code(s): D64.9 - ANEMIA, UNSPECIFIED (3) CAD (coronary artery disease) Current Visit: No Status: Chronic Code(s): I25.10 - ATHSCL HEART DISEASE OF [place] CORONARY ARTERY W/O ANG PCTRS Qualifiers: (4) Chronic low back pain Current Visit: No Status: Chronic Code(s): M54.5 - LOW BACK PAIN; G89.29 - OTHER CHRONIC PAIN (5) HTN (hypertension) Current Visit: No Status: Chronic Code(s): I10 - ESSENTIAL (PRIMARY) HYPERTENSION Qualifiers: (6) Restless leg syndrome Current Visit: No Status: Chronic (7) UTI (urinary tract infection), uncomplicated Current Visit: No Status: Chronic Code(s): N39.0 - URINARY TRACT INFECTION, SITE NOT SPECIFIED - Plan CAP A- Pt is s/p rocephin and azithromycin in ED. Wbc is wnl but pt history and exam concerning for pneumonia. Additionally CTA showes evidence for pneuonia. P- continue rocephin and azithro -procal -BCx Microcytic anemia A- on brief chart review it appears that the anemia has never been worked up. Pt was unaware of condition and is symptomatic with fatigue P- will narrow likely etiology with initial labwork -monitor CBC UTI A- pt has hx of recurrent UTI, recently treated with levaquin P- rocephin per plan above HTN -home meds COPD -home meds CAD s/p Percutaneous angiography -home meds GERD -home meds restless leg -home meds chronic microcytic anemia -home meds recurrent UTIs Tx per plan above peripheral neuropathy -MD aware, home meds mixed incontinence -MD aware CODE: FULL FMR H&P: Upper Level - Pertinent history 73 yr old female with PMH of CAD and frequent UTIs presents for cough. Swelling in her feet and was seen in outside ER 2 days ago- was diagnosed with UTI. Nausea last night. NO fever or chills. No blood in stool. S/P hysterectomy. She does complain of chronic fatigue. - Pertinent findings Gen: no acute distress, resting comfortably in bed with oxygen Mouth: no pharyngeal erythema or exudates Heart: RRR, no W/R/R Lungs: Good air movement in all lung dorantes, no definitive rhonchi noted, E to A egophany noted in Left mid posterior region. no resp distress. Abd: soft, nontender to palpation Ext: areas of 1 +pitting edema in pre tibial region, 2+ pulse in dorsalis pedis Neuro:no focal deficits noted, CN 2-12 intact - Plan Date/Time: 12/07/18 [id number] I, [Tiny Lopez], have evaluated this patient and agree with findings/plan as outlined by biology intern resident. Pertinent changes/additions are listed here. LLL PNA -no sepsis -azithromycin and rocephin -Currently requiring O2, wean as able -procal -duonebs PRN Chronic microcytic anemia -check iron, TIBC, ferritin, LDH, haptoglobin, smear review -symptom of chronic fatigue, SOB -anemia dates back to 2017 -reports normal colonoscopy maybe 1-1.5 yrs ago. suspect this was in 07/2017 since there are colon bx from that time in [facility]. UTI -had been started on cipro, s/p 2 doses -UA and urine culture - rocephin LE swelling -suspect venous stasis -BNP low and not suggestive of HF HTN -cont home meds CAD -cont beta riley Restless leg syndrome -cont home meds Code: Full PCP: Dr. Jones DVT ppx: SCDs GI ppx: none Addendum - Attending - Attending Attestation Date/Time: 12/07/18 1034 I personally evaluated the patient and discussed the management with Dr. Villeda I agree with the History, Examination, Assessment and Plan documented above with any addition or exceptions noted below. Patient with 3 admissions with PNA last year SIRS criteria not meet and no hypoxia noted . Patient c/o of nonproductive cough and progressive dyspnea. Patient with prior abnormal CT scan pelvis with progressive adenopathy which need further evaluation. Dr Carrillo to be notified of admission and further PMHX Microcytic anemia for further evaluation note colonoscopy done 2017 patient relates was normal, biopsy sent to [facility] during that time period. Ground glass infiltrate suggest possible atypical PNA verse interstitial Lung disease consider HF component as BNP is elevated (albeit relatively low) from her baseline . Patient would benefit from echocardiogram if none recently HX CAD s/p AR 1989 had angioplasty at that time Patient followed by Dr Vásquez. Consider Pulmonary consult given normal procaltonin and infiltrates consider ILD . Note PMHX recurrent UTI and atrophic vaginitis past history of Klebsiella should be covered with Rocephin and continue zithromax for any atypical PNA .
[2018-12-07] MEDS ORDERED: Azithromycin 500 MG VIAL ONE (06:17)
--- NOTE | 2018-12-07 06:56 | CT ---
CTA CHEST WITH CONTRAST WITH 3D VOLUME RENDERING: INDICATION: Dyspnea. COMPARISON: Reference is made to the 04/10/2017 exam. FINDINGS: No evidence of a significant filling defect to indicate acute pulmonary embolus. There is redemonstr ation of multifocal abnormal alveolar as well as interstitial opacities, with areas of dense as well as ground-glass consolidation throughout each lung. There is bilateral mild pleural fluid. Moderate -sized hiatal hernia is present. There is nonspecific enlargement of intrathoracic lymph nodes, nota ble the mediastinum. Thoracic aorta is nonaneurysmal, with mild scattered calcification. IMPRESSION: 1. No acute pulmonary embolus is identified. 2. Findings most consistent with atypical multifocal, bilateral pneumonia with small associated pleu ral effusions. 3. Moderate hiatal hernia. This may be further assessed with followup upper GI on a nonemergent bas is. 4. Adenopathy of the chest which may be reactive in light of concomitant findings. Correlate clinic ally. POS: [facility]
[2018-12-07 07:35] LABS: Troponin I Less than 0.010 ng/mL (< 0.028)
--- NOTE | 2018-12-07 07:51 | RAD ---
SINGLE VIEW OF THE CHEST: COMPARISON: 12/05/2018. HISTORY: Cough. FINDINGS: A single view of the chest shows a normal size cardiomediastinal silhouette. There are bilateral per ihilar airspace opacities which are developing. No pleural effusion is seen. IMPRESSION: Bilateral perihilar infiltrates. POS: [facility]
[2018-12-07] MEDS ORDERED: Furosemide 20 MG TAB PO PRN (08:46)
[2018-12-07] MEDS ORDERED: Cyclobenzaprine 10 MG TAB PO PRN (08:46)
[2018-12-07] MEDS ORDERED: Acetaminophen/Codeine 30-300mg Tablet PO PRN (08:46)
[2018-12-07] MEDS ORDERED: Acetaminophen 325 MG TAB PO PRN (08:49)
[2018-12-07] MEDS ORDERED: Non-Formulary Item 1 EACH (Omeprazole [Omeprazole] 20 MG) PO SCH (09:00)
[2018-12-07] MEDS ORDERED: Non-Formulary Item 1 EACH (Cholecalciferol (Vitamin D3) [Vitamin D] 1,000 UNIT) PO SCH (09:00)
[2018-12-07] MEDS ORDERED: Carvedilol 3.125 MG TAB PO SCH (09:00)
[2018-12-07] MEDS ORDERED: LUTEIN 6 MG PO SCH (09:00)
[2018-12-07] MEDS ORDERED: Enoxaparin Sodium 40 MG/0.4 ML SYRINGE ONE (09:57)
[2018-12-07] MEDS ORDERED: Aspirin Chewable 81 MG TAB ONE (09:57)
[2018-12-07] MEDS: Amlodipine 10 MG TAB PO SCH (10:05)
[2018-12-07] MEDS ORDERED: Furosemide 40 MG/4 ML VIAL SLOW IVP SCH (10:15)
[2018-12-07] MEDS ORDERED: ISOVUE-370 76%-LOCM 1 ML ONE (10:24)
[2018-12-07 10:42] LABS: Iron 12 ug/dL (50-170); Iron Binding Capacity, Total 478 mcg/dL (265-497)
[2018-12-07 10:45] LABS: Troponin I Less than 0.010 ng/mL (< 0.028)
[2018-12-07] MEDS: Aspirin Chewable 81 MG TAB PO SCH (10:49)
[2018-12-07] MEDS: Enoxaparin Sodium 40 MG/0.4 ML SYRINGE SC SCH (10:49)
[2018-12-07] MEDS: Carvedilol 6.25 MG TAB PO SCH ×2 (10:49→20:14)
[2018-12-07] MEDS: Gabapentin 300 MG CAP PO SCH (10:50)
[2018-12-07] MEDS ORDERED: Furosemide 40 MG/4 ML VIAL ONE ×2 (11:32→14:18)
[2018-12-07] MEDS: Furosemide 40 MG/4 ML VIAL SLOW IVP SCH (14:47)
[2018-12-07] MEDS: Gabapentin 400 MG CAP PO SCH ×2 (16:25→20:14)
[2018-12-07] MEDS: rOPINIRole HCl 1 MG TAB PO SCH ×2 (16:26→20:15)
[2018-12-07] MEDS: Estradiol 1 MG TAB PO SCH (16:29)
[2018-12-07 16:37] VITALS: BMI 30.5
[2018-12-07 22:29] LABS: Bilirubin Negative (Negative); Blood, Urine Negative (Negative); Clarity CLEAR (Clear); Glucose, Urine (Dipstick) Negative (Negative); Leukocyte Negative (Negative); Nitrite Negative (Negative); Protein, Urine (Dipstick) Negative (Neg-Trace); Specific Gravity, Urine 1.006 (1.002-1.036); Urobilinogen 0.2 mg/dL (0.2-1.0)
[2018-12-07 22:31] LABS: Bacteria/HPF None Seen HPF (None Seen); Hyaline Casts/LPF 0-3 HYALINE CAST LPF (0-3 Hyaline); RBC/HPF 0-3 HPF (0-3); Squamous Epithelial None Seen HPF (0-3); WBC/HPF None Seen HPF (0-3)
[2018-12-08] MEDS: Furosemide 40 MG/4 ML VIAL SLOW IVP SCH (05:54)
[2018-12-08 06:55] LABS: Anion Gap 14 mmol/L (10-20); BUN (Urea Nitrogen) 21 mg/dL (9.8-20.1); Calc. Creatinine Clearance 71 mL/min (70-130); Calcium 8.5 mg/dL (7.8-10.44); Carbon Dioxide 26 mmol/L (23-31); Chloride 101 mmol/L (98-107); Estimated GFR-MDRD 65; Glucose 89 mg/dL (83-110); Potassium 3.7 mmol/L (3.5-5.1); Sodium 137 mmol/L (136-145)
[2018-12-08] MEDS ORDERED: cefTRIAXone\\ROCEPHIN 1 GM in Sodium Chloride 0.9% 100 ML IVPB SCH (07:00)
[2018-12-08] MEDS ORDERED: Azithromycin 250 MG in Sodium Chloride 0.9% 500 ML IVPB SCH ×2 (07:00→08:00)
--- NOTE | 2018-12-08 07:10 | PDOC.FM ---
- Subjective Subjective: Seen at bedside this morning resting comfortably. No acute events over night. No new problems. States that her breathing has improved, though complains of cough. Denies fever, chills, chest pain, or SOB - Objective MAR Reviewed: Yes Vital Signs & Weight: Vital Signs (12 hours) Temp Pulse Resp BP BP Pulse Ox 12/08/18 04:00 98.0 F 77 20 119/57 L 91 L 12/08/18 02:22 92 L 12/07/18 20:15 98.3 F 77 18 124/60 94 L 12/07/18 20:14 124/60 Weight Weight 77.337 kg I&O: 12/07/18 12/08/18 12/09/18 06:59 06:59 06:59 Intake Total 750 Output Total 850 Balance -100 Result Diagrams: 12/08/18 06:28 12/08/18 06:28 Phys Exam - Physical Examination Constitutional: NAD HEENT: moist MMs Neck: no JVD Expiratory wheezing in bases b/l L>R Cardiovascular: RRR, no significant murmur Gastrointestinal: soft, non-tender, no distention Musculoskeletal: no edema Neurological: non-focal, moves all 4 limbs Psychiatric: normal affect, A&O x 3 Skin: no rash Dx/Plan (1) Acute respiratory failure with hypoxia Code(s): J96.01 - ACUTE RESPIRATORY FAILURE WITH HYPOXIA Status: Resolved (2) Pneumonia Code(s): J18.9 - PNEUMONIA, UNSPECIFIED ORGANISM Status: Suspected (3) Anemia, normocytic normochromic Code(s): D64.9 - ANEMIA, UNSPECIFIED Status: Chronic (4) CAD (coronary artery disease) Code(s): I25.10 - ATHSCL HEART DISEASE OF [place] CORONARY ARTERY W/O ANG PCTRS Status: Chronic Qualifiers: (5) HTN (hypertension) Code(s): I10 - ESSENTIAL (PRIMARY) HYPERTENSION Status: Chronic Qualifiers: (6) Volume overload Code(s): E87.70 - FLUID OVERLOAD, UNSPECIFIED Status: Suspected - Plan Plan: 1. Acute hypoxic respiratory failure - Initially pt required 5L by NC, no on room air. There is a questionable dx of PNA, while CTA is possible infiltrate labs are inconsistent with infectious etiology and appear to be possibly related to overload. She also has a previous dx of asthma vs COPD. - Schedule duonebs - Echo to evaluate for CHF - Will continue abx until other etiologies can be ruled in. - Other possibilities are interstitial lung disease, will need eval from pulm in outpatient setting. 2. Anemia, microcytic - FOBT is negative - Iron studies c/w iron deficiency. Start oral Fe and Vit C - Discussed dx with PCP, she has been chronically anemic however not as low as she was yesterday. Currently stable with normal vitals, may need further work up outpatient 3. Suspected PNA - as above 4. HTN - restart home meds 5. CAD - restart home meds 6. Urinary incontinence - home meds Dispo: patient is stable and improving, likely LOS 24-48 hours. Addendum - Attending - Attending Attestation Date/Time: 12/08/18 1214 I personally evaluated the patient and discussed the management with Dr. Treviño I agree with the History, Examination, Assessment and Plan documented above with any addition or exceptions noted below. Patient feeling better today. Recommend iron infusion and GI consult further consideration tagged RBC study etc. still need further evaluation pelvic adenopathy f/u and continue respiratory treatment and outpt PFTs.
[2018-12-08] MEDS ORDERED: Azithromycin 250 MG in Sodium Chloride 0.9% 250 ML 250 ML IVPB SCH (08:00)
[2018-12-08 08:34] LABS: #Eosinphils 0.1 thou/uL (0.0-0.7); #Lymphocytes 1.3 thou/uL (1.20-3.40); #Monocytes 0.5 thou/uL (0.11-0.59); #Neutrophils 3.6 thou/uL (1.40-6.50); %Basophils 0.6 % (0.0-1.0); %Eosinophils 1.5 % (0.0-10.0); %Lymphocytes 24.1 % (21.0-51.0); %Monocytes 9.2 % (0.0-10.0); %Neutrophils 64.6 % (42.0-75.0); Hemoglobin 7.7 g/dL (12.0-16.0); Mean Corpuscular HGB CONC 29.7 g/dL (32.0-36.0); Mean Corpuscular Hemoglobin 20.1 pg (27.0-31.0); Mean Corpuscular Volume 67.6 fL (78.0-98.0); Mean Platelet Volume 7.6 fL (7.4-10.4); Platelet Count 544 thou/uL (130-400); Red Blood Cell (RBC) Count 3.84 mill/uL (4.20-5.40); White Blood Cell (WBC) Count 5.5 thou/uL (4.8-10.8)
[2018-12-08 08:37] LABS: Hypochromia SLIGHT = 6-15 cells (100X) (0-5/hpf); MDiff Complete? YES; Microcytosis MODERATE=15-30 cells (100X) (0-5/hpf); Platelet Morphology Comment Appears Increased; Polychromasia SLIGHT = 2-3 cells (100X) (0-2/hpf)
[2018-12-08] MEDS ORDERED: Furosemide 20 MG TAB PO SCH (09:00)
[2018-12-08] MEDS ORDERED: Non-Formulary Item 1 EACH (Mirabegron [Myrbetriq] 50 MG) PO SCH (09:00)
[2018-12-08] MEDS: Amlodipine 10 MG TAB PO SCH ×3 (10:18→20:19)
[2018-12-08] MEDS: Ferrous Sulfate 325 MG TAB PO SCH (10:18)
[2018-12-08] MEDS: Ascorbic Acid 500 mg Chewable Tablet PO SCH (10:19)
[2018-12-08] MEDS: Carvedilol 6.25 MG TAB PO SCH ×2 (10:19→20:19)
[2018-12-08] MEDS: Aspirin Chewable 81 MG TAB PO SCH (10:19)
[2018-12-08] MEDS: Enoxaparin Sodium 40 MG/0.4 ML SYRINGE SC SCH (10:19)
[2018-12-08] MEDS: Furosemide 40 MG TAB PO SCH ×2 (10:22→15:18)
[2018-12-08] MEDS: Estradiol 1 MG TAB PO SCH (10:22)
[2018-12-08] MEDS: Gabapentin 300 MG CAP PO SCH (10:22)
[2018-12-08] MEDS ORDERED: Iron Sucrose Complex 200 MG in Sodium Chloride 0.9% 250 ML 250 ML IVPB SCH (10:30)
[2018-12-08] MEDS ORDERED: predniSONE 20 MG TAB PO SCH (10:30)
[2018-12-08] MEDS ORDERED: Iron, Sodium Ferric Gluconate 250 MG in Sodium Chloride 0.9% 250 ML 250 ML IVPB SCH ×2 (11:15→17:00)
[2018-12-08] MEDS: rOPINIRole HCl 1 MG TAB PO SCH ×2 (15:18→20:07)
[2018-12-08] MEDS: Gabapentin 400 MG CAP PO SCH ×2 (15:18→20:18)
--- NOTE | 2018-12-08 23:59 | CON ---
DATE OF CONSULTATION: 12/08/2018 HISTORY OF PRESENT ILLNESS: Ms. Cueto is a pleasant 73-year-old female, seen my partner, Dr. Pranav Grissom in the past in the office setting. She came to the emergency room for shortness of breath on the and was admitted with a diagnosis of "pneumonia." She reported she had been to the ER about 2 days before that for complaints of shortness of breath and was sent home at that time. On the day she was admitted, she had some CAT scans done to rule out pulmonary embolus, which were negative, but there was a questionable infiltrate on the chest x-ray and she was started on antibiotics in the emergency room despite no fever, no leukocytosis. The admitting team when asked me to see her, she was noted to be profoundly anemic. On talking with them, they felt that her shortness of breath may be related to some volume overload in relation to her anemia. She does have enlarged heart. She is actually having an echocardiogram today. As far as her anemia, labs on admission noted for hemoglobin of 7.9 with MCV of 67, it is 7.7 today with the same MCV. Iron was low at 12, TIBC 478, and ferritin was low at 12 as well. The patient denies any overt melena, hematochezia, hematemesis, change in bowel function, or abdominal pain. She eats well. She does have a history of reflux for which she takes a PPI and some Tums. Her anemia is not new. She had a hemoglobin of 8.5 with MCV of 68 back in 2017, 9.5 in 2016. In fact, she knows she has been told that she is anemic since she was a child. Here, she has had stool that was negative for Hemoccult. Previous evaluation with GI standpoint is notable for a normal screening colonoscopy in 2010. In July of 2017, less than two years ago, she had a colonoscopy that was normal. There was some random small colon biopsies taken to rule out microscopic colitis. She had diarrhea at that time and these biopsies were normal and she had an EGD on 07/20/2017, as well as possible history of reflux, which was normal except for a small hiatal hernia. Presently, the patient states she feels a little bit better. The residents noted that she is going to get some IV iron today. PAST MEDICAL HISTORY: Reflux, previous cardiac cath and angioplasty, during which she takes two blood pressures for hypertension. She denies any diabetes or hyperlipidemia. COPD, recurrent UTIs, and peripheral neuropathy. ALLERGIES: RAMIPRIL, IBUPROFEN, RASTA INHIBITORS. MEDICATIONS AT HOME: 1. Aspirin 81 mg. 2. Gabapentin. 3. Omeprazole 40 mg daily. 4. Flexeril. 5. Furosemide. 6. Myrbetriq. 7. Vitamin D. 8. Bactrim for UTIs. 9. Estrace. 10. Requip for restless legs. 11. Tylenol with Codeine. 12. Albuterol. 13. Amlodipine. 14. Gabapentin. 15. Inhalers. PAST SURGICAL HISTORY: Back surgery, hysterectomy, heart catheterization, and the above noted upper and lower endoscopies in July of 2017. REVIEW OF SYSTEMS: CONSTITUTIONAL: Fatigue, shortness of breath on exertion. HEENT: Negative. RESPIRATORY: Dyspnea on exertion. No orthopnea. CARDIOVASCULAR: Dyspnea on exertion. No chest pain with exertion. GI: No nausea or vomiting. Positive reflux. Negative for dysphagia or odynophagia. Remainder of GI review of systems per HPI. : Negative. SKIN: Negative. MUSCULOSKELETAL: Negative. PRESENT MEDICATIONS: Here in the hospital; 1. Tylenol. 2. Tylenol 3. 3. Norvasc. 4. Vitamin C. 5. Aspirin 81. 6. Coreg. 7. Calciferol. 8. Flexeril. 9. Lovenox. 10. Estrace. 11. Iron b.i.d. 12. Lasix. 13. Neurontin. 14. Myrbetriq. 15. Protonix 40 mg p.o. daily. 16. Propranolol. PHYSICAL EXAMINATION: GENERAL: She is resting in bed. She is in no distress. VITAL SIGNS: Temperature is 97.9, pulse 86, blood pressure is 139/85. LUNGS: Clear. HEART: Regular rate and rhythm without clicks, rubs, or murmurs. ABDOMEN: Soft and nontender with no rebound or guarding. EXTREMITIES: No clubbing, cyanosis, or edema. LABORATORY DATA: As per HPI. Platelet count is 537 to 544. Chemistries notable for BUN 21 and creatinine 0.8. Liver function tests normal. ASSESSMENT: 1. Microcytic anemia with low iron, this has been chronic and going back over a year, she had upper and lower endoscopies in July 2017 that were unrevealing. She has had heme-negative stool here. It may be that this is the cause of her shortness of breath that got her to the emergency room. 2. Diagnosis with pneumonia, this is incorrect after talking with the residents,. They do not think the patient ever had pneumonia. They are getting an echocardiogram to see if she has any degree of congestive heart failure. She had a BNP of about less than 200. RECOMMENDATIONS: 1. IV iron, PPI therapy. 2. If there has been no signs of overt GI bleeding, I think she can go home tomorrow from a GI standpoint. We can get her set up for a capsule endoscopy in the outpatient setting to evaluate her small bowel. If that is negative, we will leave that to Dr. Grissom to repeat her upper and lower endoscopy. If she feels negative right now, I am not sure there is much to be added by that. 3. I would check her for celiac with antibody studies. Job ID: [id number]
[2018-12-09 06:31] LABS: #Eosinphils 0.1 thou/uL (0.0-0.7); #Lymphocytes 1.9 thou/uL (1.20-3.40); #Monocytes 0.6 thou/uL (0.11-0.59); #Neutrophils 4.9 thou/uL (1.40-6.50); %Basophils 0.3 % (0.0-1.0); %Eosinophils 1.4 % (0.0-10.0); %Lymphocytes 25.3 % (21.0-51.0); %Monocytes 7.6 % (0.0-10.0); %Neutrophils 65.4 % (42.0-75.0); Hemoglobin 9.4 g/dL (12.0-16.0); Mean Corpuscular HGB CONC 30.1 g/dL (32.0-36.0); Mean Corpuscular Hemoglobin 20.1 pg (27.0-31.0); Mean Corpuscular Volume 66.9 fL (78.0-98.0); Mean Platelet Volume 7.8 fL (7.4-10.4); Platelet Count 640 thou/uL (130-400); RBC Distribution Width 17.2 % (11.5-14.5); Red Blood Cell (RBC) Count 4.68 mill/uL (4.20-5.40); White Blood Cell (WBC) Count 7.5 thou/uL (4.8-10.8)
--- NOTE | 2018-12-09 06:43 | PDOC.FM ---
- Subjective Subjective: Seen this morning at bedside sitting and watching TV. No new complaints. Feeling better overall. No acute events over night - Objective MAR Reviewed: Yes Vital Signs & Weight: Vital Signs (12 hours) Temp Pulse Resp BP BP Pulse Ox 12/09/18 04:00 97.8 F 79 18 114/55 L 93 L 12/08/18 20:19 86 135/90 12/08/18 20:00 98.7 F 78 18 135/60 92 L 12/08/18 19:21 86 16 96 Weight Weight 74.843 kg I&O: 12/07/18 12/08/18 12/09/18 06:59 06:59 06:59 Intake Total 750 960 Output Total 850 2600 Balance -100 -1640 Result Diagrams: 12/09/18 06:17 12/09/18 06:17 Phys Exam - Physical Examination Constitutional: NAD HEENT: moist MMs, oral pharynx no lesions Neck: no JVD Respiratory: clear to auscultation bilateral Cardiovascular: no significant murmur Gastrointestinal: soft, non-tender, no distention Musculoskeletal: no edema Neurological: normal sensation, moves all 4 limbs Psychiatric: A&O x 3 Skin: no rash Dx/Plan (1) Acute respiratory failure with hypoxia Code(s): J96.01 - ACUTE RESPIRATORY FAILURE WITH HYPOXIA Status: Resolved (2) Anemia, normocytic normochromic Code(s): D64.9 - ANEMIA, UNSPECIFIED Status: Chronic (3) CAD (coronary artery disease) Code(s): I25.10 - ATHSCL HEART DISEASE OF [place] CORONARY ARTERY W/O ANG PCTRS Status: Chronic Qualifiers: (4) HTN (hypertension) Code(s): I10 - ESSENTIAL (PRIMARY) HYPERTENSION Status: Chronic Qualifiers: (5) Volume overload Code(s): E87.70 - FLUID OVERLOAD, UNSPECIFIED Status: Suspected - Plan Plan: 1. Acute hypoxic respiratory failure, resolved - On room air with normal saturation. - Echo shows normal EF. Seems to be improving with steroids and duoneb. Unclear dx at this time COPD vs asthma. - Will need outpatient PFT 2. Anemia, microcytic - s/p Fe infusion yesterday. Improved Hb today. No signs of acute bleed - Discussed case with GI, they will evaluate further outpatient 3. HTN - controlled on home meds 4. CAD - restart home meds 5. Urinary incontinence - home meds Dispo: patient doing well. Ready for dc today on home prednisone with outpatient follow up. Addendum - Attending - Attending Attestation Date/Time: 12/09/18 6253 I personally evaluated the patient and discussed the management with Dr. Treviño I agree with the History, Examination, Assessment and Plan documented above with any addition or exceptions noted below. Discussed care plan with Patient and spouse at length R/O Lung DX ILD,COPD etc complete oral steroid and continue Advair as maintenance RX and albuterol prn Anemia iron infusion and appreciate GI rec for video capsule endoscopy as outpatient Obtain follow up CT pelvis prior to discharge Patient stable for dismissal will contact PCP for outpt follow up and further recommendations
[2018-12-09 06:54] LABS: Anion Gap 13 mmol/L (10-20); BUN (Urea Nitrogen) 22 mg/dL (9.8-20.1); Calc. Creatinine Clearance 67 mL/min (70-130); Calcium 9.2 mg/dL (7.8-10.44); Carbon Dioxide 29 mmol/L (23-31); Chloride 99 mmol/L (98-107); Estimated GFR-MDRD 63; Glucose 90 mg/dL (83-110); Potassium 3.7 mmol/L (3.5-5.1); Sodium 137 mmol/L (136-145)
[2018-12-09] MEDS: Ferrous Sulfate 325 MG TAB PO SCH (08:48)
[2018-12-09] MEDS: Amlodipine 10 MG TAB PO SCH (08:49)
[2018-12-09] MEDS: Aspirin Chewable 81 MG TAB PO SCH (08:49)
[2018-12-09] MEDS: Carvedilol 6.25 MG TAB PO SCH (08:49)
[2018-12-09] MEDS: Ascorbic Acid 500 mg Chewable Tablet PO SCH (08:49)
[2018-12-09] MEDS: Gabapentin 300 MG CAP PO SCH (08:50)
[2018-12-09] MEDS: Enoxaparin Sodium 40 MG/0.4 ML SYRINGE SC SCH (08:50)
[2018-12-09] MEDS: Furosemide 40 MG TAB PO SCH ×2 (08:50→16:31)
[2018-12-09] MEDS: Estradiol 1 MG TAB PO SCH (08:50)
[2018-12-09] MEDS ORDERED: Iopamidol 370 76% 100 ML VIAL ONE (11:17)
[2018-12-09] MEDS ORDERED: predniSONE 20 MG TAB PO SCH (12:45)
--- NOTE | 2018-12-09 14:41 | PRG ---
DATE OF SERVICE: 12/09/2018 SUBJECTIVE: Ms. Cueto is without complaints. She states that her physicians have ordered a CAT scan on her. She thinks maybe to try to find out why she is anemic. She is without complaints. She denies any abdominal pain. She did get some IV iron. She denies any melena, hematochezia, or hematemesis. She continues on prednisone daily and Protonix. OBJECTIVE: VITAL SIGNS: Temperature is 97.6, pulse of 78, and blood pressure 131/60. ABDOMEN: Soft and nontender. She is resting comfortably in bed. at bedside. LABORATORY DATA: White count 7.5, hemoglobin 9.4, and platelet count 640. Sodium 137, potassium is 3.7, and BUN and creatinine are 20 and 0.8. ASSESSMENT: 1. Iron deficiency anemia of unknown etiology. 2. Chronic anemia for 4 to 5 years. Her hemoglobin now is about a gram or 2 below baseline. 3. Hemoccult negative stool here in the hospital with no signs of bleeding. 4. Previous evaluation within the past 15 months has included negative esophagogastroduodenoscopy and colonoscopy in our office. RECOMMENDATIONS: Capsule endoscopy of the small bowel. We can facilitate this as an outpatient. We will follow up on CAT scan. Job ID: [id number]
[2018-12-09 15:14] VITALS: BP 153/67; TEMP 98.2
--- NOTE | 2018-12-09 16:10 | CT ---
CT OF THE ABDOMEN AND PELVIS WITH IV CONTRAST INDICATION: Anemia COMPARISON: CT of the chest, abdomen and pelvis dated October 23, 2018 from [facility]. FINDINGS: ABDOMEN: Lung bases: There is bilateral infrahilar airspace opacities better detailed on a recent performed CT A of the chest dated December 07, 2018. Please see this study for full details. Liver: No focal lesion. Gallbladder: Normal appearing. Pancreas: Normal. Adrenal glands: Normal. Spleen: Normal. Kidneys: Normal. Retroperitoneum of the upper abdomen: There is a moderate-sized hiatal hernia. There are mild consult ations involving all aorta. No lymphadenopathy is evident. Pelvis: Small and large bowel: Small fluid density nodule seen within the sigmoid mesentery is slightly small er than on the comparison in 2018 now measuring 9.9 mm where it previously measured 1.1 cm. Rectal and perirectal soft tissues:Normal. Reproductive structures: Surgically absent Free fluid in pelvis: No free fluid is evident. Lymphadenopathy pelvis: No lymphadenopathy is evident. Vascular structures: There are scattered vascular calcifications involving the abdominal pelvic vascu lature. Osseous structures: There is degenerative levoscoliosis of the lumbar spine. There is scattered dege nerative and osteoarthritic changes. IMPRESSION: 1. No acute CT abnormality demonstrated.
[2018-12-09] MEDS: Gabapentin 400 MG CAP PO SCH (16:31)
[2018-12-09] MEDS: rOPINIRole HCl 1 MG TAB PO SCH (16:31)
[2018-12-10] MEDS ORDERED: predniSONE 20 MG TAB PO SCH (08:00)
[2018-12-10 17:19] LABS: EliA Celiac New Method **** NEW METHOD ****
== END 2018-12-09 18:02 | disposition home or self-care (01) | DRG 189 ==
LOC: ERS 03:12 → ERHOLD 06:50 → 2NO 15:31
PROVIDERS: ADMIT Family Medicine; ATTEND Family Medicine
DX: J96.01 Acute respiratory failure with hypoxia (principal); I10 Essential (primary) hypertension; I25.10 Atherosclerotic heart disease of native coronary artery without angina pectoris; K21.9 Gastro-esophageal reflux disease without esophagitis; G25.81 Restless legs syndrome; D50.9 Iron deficiency anemia, unspecified; R32 Unspecified urinary incontinence; E87.70 Fluid overload, unspecified; G62.9 Polyneuropathy, unspecified; Z95.5 Presence of coronary angioplasty implant and graft; Z90.710 Acquired absence of both cervix and uterus; Z79.82 Long term (current) use of aspirin; Z79.51 Long term (current) use of inhaled steroids; Z79.899 Other long term (current) drug therapy
CPT/HCPCS: 36415; 71045; 71275; 74177; 80048; 80053; 81001; 82274; 82728; 83010; 83516; 83540; 83550; 83615; 83690; 83880; 84145; 84484; 85014; 85018; 85025; 85060; 85379; 87086; 93005; 93306; 94640; 96365; 96367; J0456; J0696; J1650; J1940; J2916; J3490; J7050; J7512; J7620; Q9966; Q9967

== ENCOUNTER 2019-03-22 14:45 | Outpatient (CLI) | payer MEDICARE ==
--- NOTE | 2019-03-22 17:18 | RAD ---
CERVICAL SPINE SIX VIEWS: INDICATIONS: Cervical spondylosis. COMPARISON: 08/03/2018 TECHNIQUE: Lateral views were obtained in neutral, flexion, and extension. FINDINGS: There are moderate degenerative changes present. There is anterolisthesis at C3-C4, measuring 3 to 4 mm in the neutral position. Loss of disk space at C4-C5, C5-C6, and C6-C7, with anterior osteophyte s and posterior spondylosis. The anterolisthesis at C3-C4 exacerbates with flexion and corrects with extension. IMPRESSION: 1. Moderate degenerative changes of the cervical spine, as described above. 2. Anterolisthesis at C3-C4 is noted, as described. POS: [facility]
== END 2019-03-22 14:46 | disposition home or self-care (01) ==
LOC: RAD 14:45
PROVIDERS: ATTEND Specialist
DX: M47.812 Spondylosis without myelopathy or radiculopathy, cervical region (principal); M43.12 Spondylolisthesis, cervical region
CPT/HCPCS: 72050

== ENCOUNTER 2019-05-02 12:37 | Day surgery (SDC) | payer MEDICARE, OTHER ==
[2019-04-29 16:01] VITALS: BMI 29.2
[2019-05-02] MEDS ORDERED: Fentanyl 100 MCG/2 ML VIAL ONE (15:17)
--- NOTE | 2019-05-02 16:11 | MRI ---
MRI Cervical spine without contrast: HISTORY: Cervical radicular pain. Patient states neck pain with right upper extremity radiculopathy. COMPARISON: None FINDINGS: The craniocervical junction is unremarkable. No significant cord signal abnormality. Paravertebral soft tissues have a normal appearance and normal signal intensity. There is slight reversal of normal cervical lordotic curvature centered at the C3-4 level, and there is slight anterolisthesis of C3 on C4 measuring 3 to 4 mm. C1-2:No significant stenosis. C2-3: Mild facet degenerative changes are seen on the left which results in mild left-sided neural fo raminal narrowing. The central spinal canal and neural foramina are patent. No disc bulge or disc herniation is seen at this level. C3-4: As noted above, there is anterolisthesis of C3 on C4. A disc osteophyte complex is present at t his level. Findings result in narrowing of the central spinal canal with flattening of the anterior aspect of the spinal cord. Severe bilateral neural foraminal narrowing is present. C4-5: There is loss of intervertebral disc height. Endplate degenerative changes are present at this level. There is a broad-based disc osteophyte complex much greater paracentrally on the right resulting in moderate to severe narrowing of the central spinal canal with prominent flattening of th e spinal cord. There is severe bilateral neural foraminal narrowing. C5-6: There is loss of intervertebral disc height. There is a broad-based disc osteophyte complex pre sent. Findings result in narrowing of the central spinal canal with slight flattening of the anterior aspect of the spinal cord. Uncinate process hypertrophy is present at this level. Severe shira ateral neural foraminal narrowing is present C6-7: There is loss of intervertebral disc height. There is a broad-based disc osteophyte complex. Fi ndings result in moderate narrowing of the central spinal canal. There is flattening of the spinal cord at this level. There is severe left and moderate right-sided neural foraminal narrowing. C7-T1: There is trace anterolisthesis of C7 on T1. Mild facet degenerative changes are present at thi s level. There are areas of decreased T2-weighted signal intensity seen posterior to the thecal sac which likely represents ligamentous calcification. This does result in mild narrowing of the central spinal canal. Mild bilateral neural foraminal narrowing. IMPRESSION: 1. Multilevel degenerative changes seen throughout the cervical spine with multilevel severe degrees of neural foraminal narrowing as well as central canal narrowing at multiple levels. 2. Anterolisthesis of C3 on C4 and to a much lesser extent C7 on T1 likely due to facet hypertrophic changes at these levels. 3. Mild edema involving the endplates of the C3 and C4 vertebral bodies which is felt to most likely be related to degenerative changes at this level as opposed to mild compression fracture along the superior endplate of the C4 vertebral body.
[2019-05-02] MEDS ORDERED: Lidocaine 1% PF 5 ML VIAL ONE (16:46)
[2019-05-02] MEDS ORDERED: Ondansetron PF 4 MG/2 ML Vial ONE (16:46)
[2019-05-02] MEDS ORDERED: PROPOFOL 200 MG/20 ML VIAL ONE (16:46)
== END 2019-05-02 16:42 | disposition home or self-care (01) ==
LOC: SDC/OP 12:37
PROVIDERS: ATTEND Nurse Practitioner Family
DX: M47.22 Other spondylosis with radiculopathy, cervical region (principal); M47.26 Other spondylosis with radiculopathy, lumbar region; M46.1 Sacroiliitis, not elsewhere classified; M16.10 Unilateral primary osteoarthritis, unspecified hip; Z79.82 Long term (current) use of aspirin; Z79.899 Other long term (current) drug therapy; Z88.8 Allergy status to other drugs, medicaments and biological substances
CPT/HCPCS: 72141; J3010

== ENCOUNTER 2020-11-26 10:35 | Outpatient (CLI) | payer MEDICARE ==
[2020-11-26 19:01] LABS: SARS-CoV-2 PCR by NAA Not Detected (NotDetected)
== END 2020-11-26 10:36 | disposition home or self-care (01) ==
LOC: LABBT 10:35
PROVIDERS: ATTEND Specialist
DX: Z20.822 Contact with and (suspected) exposure to COVID-19 (principal)
CPT/HCPCS: U0003; U0005; 87635

== ENCOUNTER 2020-11-30 10:58 | Day surgery (SDC) | payer MEDICARE ==
[2020-11-29 11:43] VITALS: BMI 25.6
[~2020-11-30 10:58] MED LIST: Magnevist 469MG/ML 20 ML VIAL ONE
[2020-11-30] MEDS ORDERED: ePHEDrine Sulfate 50 MG/10 ML VIAL ONE (13:30)
[2020-11-30] MEDS ORDERED: Ondansetron PF 4 MG/2 ML Vial ONE (13:30)
[2020-11-30] MEDS ORDERED: Lidocaine 1% PF 5 ML VIAL ONE (13:30)
[2020-11-30] MEDS ORDERED: PHENYLEPHRINE-NS 100 MCG/ML 10 ML SYRINGE ONE (13:30)
[2020-11-30] MEDS ORDERED: PROPOFOL 200 MG/20 ML VIAL ONE (13:30)
== END 2020-11-30 16:17 | disposition home or self-care (01) ==
LOC: SDC/OP 10:58
PROVIDERS: ATTEND Specialist
DX: M43.16 Spondylolisthesis, lumbar region (principal); M54.16 Radiculopathy, lumbar region; M48.061 Spinal stenosis, lumbar region without neurogenic claudication; M48.04 Spinal stenosis, thoracic region; M51.25 Other intervertebral disc displacement, thoracolumbar region; Z79.899 Other long term (current) drug therapy; Z88.8 Allergy status to other drugs, medicaments and biological substances
CPT/HCPCS: 72158; A9579; J2405; J2704

== ENCOUNTER 2024-08-22 11:54 | Day surgery (SDC) | payer MEDICARE ==
[2024-08-19 14:39] VITALS: BMI 25.9
[2024-08-22] MEDS ORDERED: PHENYLEPHRINE-NS 100 MCG/ML 10 ML SYRINGE ONE (14:10)
[2024-08-22] MEDS ORDERED: Dexamethasone 20 MG/5 ML VIAL ONE (14:10)
[2024-08-22] MEDS ORDERED: PROPOFOL 200 MG/20 ML VIAL ONE (14:10)
[2024-08-22] MEDS ORDERED: Lidocaine 1% PF 5 ML VIAL ONE (14:10)
[2024-08-22] MEDS ORDERED: Ondansetron PF 4 MG/2 ML Vial ONE (14:10)
== END 2024-08-22 16:10 | disposition home or self-care (01) ==
LOC: MRI 11:54
PROVIDERS: ATTEND Nurse Practitioner Family
DX: M53.3 Sacrococcygeal disorders, not elsewhere classified (principal); M54.16 Radiculopathy, lumbar region; G56.03 Carpal tunnel syndrome, bilateral upper limbs; M54.12 Radiculopathy, cervical region; M46.1 Sacroiliitis, not elsewhere classified; M48.062 Spinal stenosis, lumbar region with neurogenic claudication; I11.0 Hypertensive heart disease with heart failure; I50.9 Heart failure, unspecified; I25.10 Atherosclerotic heart disease of native coronary artery without angina pectoris; K21.9 Gastro-esophageal reflux disease without esophagitis; G62.9 Polyneuropathy, unspecified; Z88.8 Allergy status to other drugs, medicaments and biological substances; Z88.1 Allergy status to other antibiotic agents; Z88.6 Allergy status to analgesic agent; Z79.82 Long term (current) use of aspirin; Z79.899 Other long term (current) drug therapy; Z90.49 Acquired absence of other specified parts of digestive tract; Z98.890 Other specified postprocedural states; Z90.710 Acquired absence of both cervix and uterus
CPT/HCPCS: 72195; J1100; J2405; J2704